=== PATIENT | male | born 1935 | race Caucasian/White ===

== ENCOUNTER 2018-07-12 11:33 | Emergency (ER) | payer MEDICARE, OTHER ==
--- NOTE | 2018-07-12 11:57 | EDM.PDOC ---
ED HPI GENERAL MEDICAL PROBLEM - General Chief Complaint: Syncope Stated Complaint: passed out after cardiac rehab Time Seen by Provider: 07/12/18 11:45 Source of Information: Reports: Patient, RN Notes Reviewed History Limitations: Reports: No Limitations - History of Present Illness INITIAL COMMENTS - FREE TEXT/NARRATIVE: Dave arrives at the [facility] ED following a 45 sec episode of syncope upon completion of Cardiac Rehab. He was sat down and head lowered when he became lt headed, and recovered uneventfully. He denies chest pain, SOB, GI upset, weakness, or neuologic deficit. An ekg noted NSR. Tracings reveal a mild bradycardia after exercise that recovered quickly. He is post op stenting x [address] [facility] June 07. Onset: Today - Related Data Allergies Allergy/AdvReac Type Severity Reaction Status Date / Time No Known Allergies Allergy Verified 07/12/18 12:31 Home Meds: Home Meds Clopidogrel Bisulfate [Clopidogrel] 75 mg PO BEDTIME 07/12/18 [History] Polyethylene Glycol 3350 [MiraLAX] 17 gm PO DAILY 07/12/18 [History] Simvastatin [Zocor] 40 mg PO BEDTIME 07/12/18 [History] Terazosin [Hytrin] 1 mg PO BEDTIME 07/12/18 [History] Past Medical History Cardiovascular History: Reports: CAD, High Cholesterol, Stents (June 07, 2018) ED ROS GENERAL - Review of Systems Review Of Systems: See Below Constitutional: Reports: No Symptoms HEENT: Reports: No Symptoms Respiratory: Reports: No Symptoms Cardiovascular: Reports: Lightheadedness, Syncope Endocrine: Reports: No Symptoms GI/Abdominal: Reports: No Symptoms : Reports: No Symptoms Musculoskeletal: Reports: No Symptoms Skin: Reports: No Symptoms Neurological: Reports: Dizziness, Syncope Psychiatric: Reports: No Symptoms Hematologic/Lymphatic: Reports: No Symptoms Immunologic: Reports: No Symptoms - Physical Exam Exam: See Below Exam Limited By: No Limitations General Appearance: Alert, WD/WN, No Apparent Distress Eye Exam: Bilateral Eye: EOMI, Normal Inspection, PERRL Ears: Normal External Exam Nose: Normal Inspection Throat/Mouth: Normal Inspection, Normal Oropharynx, No Airway Compromise Head Exam: Normocephalic Neck: Normal Inspection, Supple Respiratory/Chest: No Respiratory Distress, Lungs Clear, Normal Breath Sounds, No Accessory Muscle Use, Chest Non-Tender Cardiovascular: Normal Peripheral Pulses, Regular Rate, Rhythm, No Edema, No Gallop, No JVD, No Murmur, No Rub GI/Abdominal: Normal Bowel Sounds, Soft, Non-Tender, No Organomegaly, No Distention, No Mass (Male) Exam: Deferred Rectal (Males) Exam: Deferred Neuro Exam (Abbreviated): Alert, Oriented, CN II-XII Intact, Normal Cognition, Normal Gait, No Motor/Sensory Deficits Back Exam: Normal Inspection Extremities: Normal Inspection Psychiatric: Normal Affect, Normal Mood Skin Exam: Warm, Dry, Intact Course - Vital Signs Text/Narrative:: Dave remained stable at the [facility] ED. Screening labs were baseline. There was no drop in BP with standing observed, and VR increased to 85 bpm during orthostatic evaluation. His spouse will drive him home. Last Recorded V/S: Last Vital Signs Temp 36.2 C 07/12/18 11:33 Pulse 75 07/12/18 12:13 Resp 18 07/12/18 12:13 BP 105/57 L 07/12/18 12:13 Pulse Ox 94 L 07/12/18 12:13 - Orders/Labs/Meds Orders: Active Orders 24 hr Category Date Time Status EKG 12 Lead [EK] Routine Ther 07/12/18 11:53 Ordered Labs: Laboratory Tests 07/12/18 07/12/18 07/12/18 Range/Units 12:05 12:05 12:05 WBC 5.3 (4.5-12.0) X10-3/uL RBC 4.28 L (4.30-5.75) x10(6)uL Hgb 11.8 (11.5-15.5) g/dL Hct 36.0 (30.0-51.3) % MCV 84.0 (80-96) fL MCH 27.6 L (27.7-33.6) pg MCHC 32.9 (32.2-35.4) g/dL RDW 18.5 H (11.5-15.5) % Plt Count 216 (125-369) X10(3)uL MPV 7.0 L (7.4-10.4) fL Neut % (Auto) 55.4 (46-82) % Lymph % (Auto) 32.0 (13-37) % Stephenson % (Auto) 8.5 (4-12) % Eos % (Auto) 3 (1.0-5.0) % Baso % (Auto) 1 (0-2) % Neut # (Auto) 2.8 (1.6-8.3) # Lymph # (Auto) 1.7 (0.6-5.0) # Stephenson # (Auto) 0.5 (0.0-1.3) # Eos # (Auto) 0.2 (0.0-0.8) # Baso # (Auto) 0.1 (0.0-0.2) # Sodium 137 (135-145) mmol/L Potassium 4.0 (3.5-5.3) mmol/L Chloride 104 (100-110) mmol/L Carbon Dioxide 22 (21-32) mmol/L BUN 25 H (7-18) mg/dL Creatinine 1.0 (0.70-1.30) mg/dL Est Cr Clr Drug Dosing TNP Estimated GFR (MDRD) > 60 (>60) BUN/Creatinine Ratio 25.0 H (9-20) Glucose 107 (80-116) mg/dL Calcium 8.6 (8.6-10.2) mg/dL Troponin I < 0.017 L (<0.017-0.056) ng/mL Departure - Departure Time of Disposition: 12:46 Disposition: Home, Self-Care 01 Condition: Good Clinical Impression: Syncope Qualifiers: Syncope type: unspecified Qualified Code(s): R55 - Syncope and collapse - Discharge Information *PRESCRIPTION DRUG MONITORING PROGRAM REVIEWED*: Not Applicable *COPY OF PRESCRIPTION DRUG MONITORING REPORT IN PATIENT MICHAEL: Not Applicable Referrals: Abran Vasquez MD [Primary Care Provider] - Forms: ED Department Discharge - Problem List & Annotations (1) Syncope SNOMED Code(s): 124177090 Code(s): R55 - SYNCOPE AND COLLAPSE Status: Acute Current Visit: Yes Annotation/Comment:: I suggested no bike riding today. He may resume usual activity tomorrow. No change in meds. Qualifiers: Syncope type: unspecified Qualified Code(s): R55 - Syncope and collapse - Problem List Review Problem List Initiated/Reviewed/Updated: Yes - My Orders Last 24 Hours: My Active Orders 07/12/18 11:53 EKG 12 Lead [EK] Routine - Assessment/Plan Last 24 Hours: My Active Orders 07/12/18 11:53 EKG 12 Lead [EK] Routine Plan: Follow up with PCP if needed.
== END 2018-07-12 12:53 | disposition home or self-care (01) ==
LOC: FB.ED 11:33
DX: R55 Syncope and collapse (principal); Z79.899 Other long term (current) drug therapy
CPT/HCPCS: 36415; 80048; 84484; 85025; 93005; 99284

== ENCOUNTER 2023-05-21 08:59 | Emergency (ER) | payer MEDICARE ==
[2023-05-21] MEDS ORDERED: predniSONE 20 MG Tab PO ONE (09:26)
== END 2023-05-21 09:45 | disposition home or self-care (01) ==
LOC: FB.ED 08:59
DX: T78.3XXA Angioneurotic edema, initial encounter (principal); I25.10 Atherosclerotic heart disease of native coronary artery without angina pectoris; E78.00 Pure hypercholesterolemia, unspecified; Z79.899 Other long term (current) drug therapy; Z79.02 Long term (current) use of antithrombotics/antiplatelets
CPT/HCPCS: 99283; J7512

== ENCOUNTER 2023-05-25 07:51 | Emergency (ER) | payer MEDICARE ==
[2023-05-25] MEDS ORDERED: Sodium Chloride 0.9% 10 ML Syringe FLUSH PRN (08:40)
[2023-05-25] MEDS ORDERED: EPINEPHrine 1 MG/ML SDV IM ONE (08:41)
[2023-05-25] MEDS ORDERED: Sodium Chloride 0.9% 1,000 ML IV SCH (08:45)
[2023-05-25 09:05] LABS: BASOPHILS ABSOLUTE AUTO 0.1 x10-3/uL (0.0-0.3); BASOPHILS PERCENT AUTO 0.8 % (0.3-3.8); EOSINOPHILS ABSOLUTE AUTO 0.1 x10-3/uL (0.0-0.6); HEMATOCRIT 37.9 % (38.3-50.1); HEMOGLOBIN 12.5 g/dL (12.9-17.7); LYMPHOCYTES ABSOLUTE AUTO 1.5 x10-3/uL (0.5-4.5); LYMPHOCYTES PERCENT AUTO 23.9 % (15.8-45.3); MEAN CORPUSCULAR HEMOGLOBIN 32.7 pg (27.0-33.3); MEAN CORPUSCULAR VOLUME 99.1 fL (80.8-98.7); MEAN PLATELET VOLUME 7.2 fL (6.7-11.0); MONOCYTES ABSOLUTE AUTO 0.6 x10-3/uL (0.0-1.2); MONOCYTES PERCENT AUTO 8.9 % (5.5-15.2); NEUTROPHILS ABSOLUTE AUTO 4.1 x10-3/uL (1.7-6.9); NEUTROPHILS PERCENT AUTO 64.4 % (40.3-71.8); PLATELET COUNT,PLT 222 x10(3)uL (117-477); RED BLOOD CELL COUNT 3.82 x10(6)uL (3.90-5.90); RED CELL DISTRIBUTION WIDTH 14.4 % (12.4-15.0); WHITE BLOOD CELL COUNT,WBC 6.4 x10-3/uL (3.2-10.1)
[2023-05-25 09:10] LABS: BLOOD UREA NITROGEN,BUN 31 mg/dL (7-18); CALCIUM 8.8 mg/dL (8.6-10.2); CARBON DIOXIDE,CO2 27 mmol/L (21-32); CHLORIDE,CL 100 mmol/L (100-110); EST CRCL DRUG DOSING (CG) 51.06 mL/min; ESTIMATED GFR 72 mL/min (>60); GLUCOSE RANDOM 112 mg/dL (80-116); POTASSIUM,K 4.2 mmol/L (3.5-5.3); SODIUM,NA 136 mmol/L (135-145)
[2023-05-25 09:15] LABS: A/G RATIO 0.8; ALANINE AMINOTRANSFERASE,ALT 29 U/L (12-36); ALBUMIN 3.1 g/dL (3.2-4.6); ALKALINE PHOSPHATASE 74 IU/L (56-112); ASPARTATE AMNIOTRANSFERASE,AST 18 IU/L (5-25); BILIRUBIN TOTAL 0.5 mg/dL (0.1-1.3); PROTEIN TOTAL,TP 6.8 g/dL (6.0-8.0)
[2023-05-25] MEDS ORDERED: Cetirizine 10 MG Tab PO ONE (09:19)
[2023-05-25] MEDS ORDERED: Iopamidol 755 Mg/ML 100 ML Bottle IV ONE (09:45)
[2023-05-26 08:12] LABS: COMPLEMENT C3, SERUM 154 mg/dL (82-167); COMPLEMENT C4, SERUM 38 mg/dL (12-38)
== END 2023-05-25 11:30 | disposition home or self-care (01) ==
LOC: FB.ED 07:51
DX: T78.3XXA Angioneurotic edema, initial encounter (principal); I25.10 Atherosclerotic heart disease of native coronary artery without angina pectoris; E78.00 Pure hypercholesterolemia, unspecified; Z79.899 Other long term (current) drug therapy
CPT/HCPCS: 36415; 74177; 80053; 82785; 85025; 86140; 86160; 86161; 86628; 96360; 96361; 96372; 99284; A9270; J0171; J7030; Q9967

== ENCOUNTER 2023-08-17 12:23 | Inpatient (IN) | payer MEDICARE ==
[2023-08-17 13:03] LABS: BASOPHILS PERCENT AUTO 0.4 % (0.3-3.8); EOSINOPHILS ABSOLUTE AUTO 0.1 x10-3/uL (0.0-0.6); EOSINOPHILS PERCENT AUTO 1.3 % (0.1-6.8); HEMATOCRIT 28.2 % (38.3-50.1); HEMOGLOBIN 9.4 g/dL (12.9-17.7); LYMPHOCYTES ABSOLUTE AUTO 1.9 x10-3/uL (0.5-4.5); LYMPHOCYTES PERCENT AUTO 21.8 % (15.8-45.3); MEAN CORPUSCULAR HEMOGLOBIN 30.8 pg (27.0-33.3); MEAN CORPUSCULAR HGB CONC 33.4 g/dL (28.7-35.3); MEAN CORPUSCULAR VOLUME 92.3 fL (80.8-98.7); MONOCYTES ABSOLUTE AUTO 0.9 x10-3/uL (0.0-1.2); MONOCYTES PERCENT AUTO 9.8 % (5.5-15.2); NEUTROPHILS ABSOLUTE AUTO 5.9 x10-3/uL (1.7-6.9); NEUTROPHILS PERCENT AUTO 66.7 % (40.3-71.8); PLATELET COUNT,PLT 379 x10(3)uL (117-477); RED BLOOD CELL COUNT 3.06 x10(6)uL (3.90-5.90); WHITE BLOOD CELL COUNT,WBC 8.9 x10-3/uL (3.2-10.1)
[2023-08-17 13:07] LABS: BASE EXCESS VENOUS,POC -1 mmol/L (-2 - 3+); PCO2 VENOUS,POC 26 mmHg (41-51); PH VENOUS,POC 7.51 pH Units (7.32-7.43)
[2023-08-17 13:19] LABS: INR 1.07 (1.00-1.24)
[2023-08-17 13:24] LABS: TROPONIN I 11.3 pg/mL (4.0-60.3)
[2023-08-17 13:31] LABS: A/G RATIO 0.5; ALANINE AMINOTRANSFERASE,ALT 43 U/L (12-36); ALBUMIN 2.3 g/dL (3.2-4.6); ALKALINE PHOSPHATASE 118 IU/L (56-112); ASPARTATE AMNIOTRANSFERASE,AST 49 IU/L (5-25); BILIRUBIN TOTAL 0.6 mg/dL (0.1-1.3); BLOOD UREA NITROGEN,BUN 20 mg/dL (7-18); BUN/CREATININE RATIO 18.2 (9-20); CALCIUM 8.9 mg/dL (8.6-10.2); CARBON DIOXIDE,CO2 22 mmol/L (21-32); CHLORIDE,CL 96 mmol/L (100-110); CREATININE 1.1 mg/dL (0.70-1.30); ESTIMATED GFR 65 mL/min (>60); GLUCOSE RANDOM 135 mg/dL (80-116); POTASSIUM,K 3.9 mmol/L (3.5-5.3); PROTEIN TOTAL,TP 7.2 g/dL (6.0-8.0); SODIUM,NA 129 mmol/L (135-145)
[2023-08-17 14:14] LABS: LACTIC ACID 1.1 mmol/L (0.4-2.0)
[2023-08-17] MEDS ORDERED: cefTRIAXone 1 GM Vial IVPUSH SCH (14:30)
[2023-08-17] MEDS ORDERED: Azithromycin 500 MG in Sodium Chloride 0.9% 250 ML IV SCH (14:30)
[2023-08-17] MEDS ORDERED: Ondansetron 4 MG/2 ML SDV IV PRN (15:00)
[2023-08-17] MEDS ORDERED: Albuterol 0.083% 2.5 MG/3 ML Neb Soln NEB PRN (15:00)
[2023-08-17] MEDS ORDERED: Sennosides/Docusate Sodium 50-8.6 MG Tab PO PRN (15:00)
[2023-08-17] MEDS ORDERED: Cyclobenzaprine 10 MG Tab PO PRN (15:10)
[2023-08-17] MEDS ORDERED: Non-Formulary Medication 1 Each (Epinephrine [Epipen] 0.3 MG/0.3 ML Pen) IM PRN (15:10)
[2023-08-17] MEDS ORDERED: DAPTOmycin 500 MG Vial IVPUSH SCH (15:15)
[2023-08-17] MEDS ORDERED: Iopamidol 755 Mg/ML 100 ML Bottle IV SCH (15:45)
[2023-08-17] MEDS: Albuterol/Ipratropium 3.0-0.5 MG/3 ML Neb Soln NEB SCH ×2 (15:54→21:26)
[2023-08-17] MEDS: Piperacillin/Tazobactam 3.375 GM in Sodium Chloride 0.9% 50 ML IV SCH ×2 (15:57→21:03)
[2023-08-17] MEDS: Enoxaparin 40 MG/0.4 ML Syringe SUBCUT SCH (16:01)
[2023-08-17] MEDS: Acetaminophen 325 MG Tab PO PRN ×2 (16:04→23:32)
[2023-08-17] MEDS: Sodium Chloride 0.9% 10 ML Syringe FLUSH PRN ×2 (17:22→21:03)
[2023-08-17] MEDS: Heparin Sodium 10 Units/ML 5 ML Syringe FLUSH PRN (17:23)
[2023-08-17] MEDS ORDERED: Rosuvastatin 20 MG Tab PO SCH (21:00)
[2023-08-17] MEDS: Terazosin 1 MG Cap PO SCH (21:06)
[2023-08-17] MEDS: traZODone 50 MG Tab PO SCH (21:06)
[2023-08-18] MEDS: Sodium Chloride 0.9% 10 ML Syringe FLUSH PRN ×6 (00:10→21:16)
[2023-08-18] MEDS: Heparin Sodium 10 Units/ML 5 ML Syringe FLUSH PRN ×6 (00:10→22:34)
[2023-08-18] MEDS: Piperacillin/Tazobactam 3.375 GM in Sodium Chloride 0.9% 50 ML IV SCH ×4 (03:08→21:17)
[2023-08-18] MEDS: Albuterol/Ipratropium 3.0-0.5 MG/3 ML Neb Soln NEB SCH ×4 (06:27→21:02)
[2023-08-18 06:30] LABS: BASOPHILS PERCENT AUTO 0.5 % (0.3-3.8); EOSINOPHILS ABSOLUTE AUTO 0.2 x10-3/uL (0.0-0.6); EOSINOPHILS PERCENT AUTO 2.4 % (0.1-6.8); HEMATOCRIT 26.9 % (38.3-50.1); HEMOGLOBIN 8.7 g/dL (12.9-17.7); LYMPHOCYTES ABSOLUTE AUTO 1.7 x10-3/uL (0.5-4.5); LYMPHOCYTES PERCENT AUTO 21.1 % (15.8-45.3); MEAN CORPUSCULAR HEMOGLOBIN 29.8 pg (27.0-33.3); MEAN CORPUSCULAR HGB CONC 32.4 g/dL (28.7-35.3); MEAN PLATELET VOLUME 7.2 fL (6.7-11.0); MONOCYTES ABSOLUTE AUTO 0.7 x10-3/uL (0.0-1.2); MONOCYTES PERCENT AUTO 9.2 % (5.5-15.2); NEUTROPHILS ABSOLUTE AUTO 5.3 x10-3/uL (1.7-6.9); NEUTROPHILS PERCENT AUTO 66.8 % (40.3-71.8); PLATELET COUNT,PLT 347 x10(3)uL (117-477); RED BLOOD CELL COUNT 2.92 x10(6)uL (3.90-5.90); RED CELL DISTRIBUTION WIDTH 17.5 % (12.4-15.0)
[2023-08-18 06:44] LABS: A/G RATIO 0.4; ALANINE AMINOTRANSFERASE,ALT 60 U/L (12-36); ALKALINE PHOSPHATASE 109 IU/L (56-112); ASPARTATE AMNIOTRANSFERASE,AST 72 IU/L (5-25); BILIRUBIN TOTAL 0.4 mg/dL (0.1-1.3); BLOOD UREA NITROGEN,BUN 19 mg/dL (7-18); BUN/CREATININE RATIO 17.3 (9-20); CALCIUM 8.6 mg/dL (8.6-10.2); CARBON DIOXIDE,CO2 24 mmol/L (21-32); CHLORIDE,CL 102 mmol/L (100-110); CREATININE 1.1 mg/dL (0.70-1.30); EST CRCL DRUG DOSING (CG) 46.42 mL/min; ESTIMATED GFR 65 mL/min (>60); GLUCOSE RANDOM 128 mg/dL (80-116); POTASSIUM,K 4.1 mmol/L (3.5-5.3); PROTEIN TOTAL,TP 6.8 g/dL (6.0-8.0); SODIUM,NA 137 mmol/L (135-145)
[2023-08-18] MEDS: DAPTOmycin 500 MG in Sodium Chloride 0.9% 50 ML IV SCH (08:17)
[2023-08-18] MEDS: Cholecalciferol (Vitamin D3) 25 MCG Tab PO SCH (09:01)
[2023-08-18] MEDS: Ezetimibe 10 MG Tab PO SCH (09:02)
[2023-08-18] MEDS: Multivitamin Tab PO SCH (09:02)
[2023-08-18] MEDS: Enoxaparin 40 MG/0.4 ML Syringe SUBCUT SCH (15:15)
[2023-08-18] MEDS: Acetaminophen 325 MG Tab PO PRN (16:23)
[2023-08-18] MEDS ORDERED: Aluminum Hydroxide/Magnesium Hydroxide Susp 30 ML Cup PO PRN (19:17)
[2023-08-18] MEDS: Terazosin 1 MG Cap PO SCH (21:03)
[2023-08-18] MEDS: traZODone 50 MG Tab PO SCH (21:07)
[2023-08-19] MEDS: Sodium Chloride 0.9% 10 ML Syringe FLUSH PRN ×8 (03:04→21:54)
[2023-08-19] MEDS: Piperacillin/Tazobactam 3.375 GM in Sodium Chloride 0.9% 50 ML IV SCH ×4 (03:05→21:18)
[2023-08-19] MEDS: Heparin Sodium 10 Units/ML 5 ML Syringe FLUSH PRN (03:45)
[2023-08-19] MEDS: Acetaminophen 325 MG Tab PO PRN ×2 (03:59→15:46)
[2023-08-19] MEDS: Albuterol/Ipratropium 3.0-0.5 MG/3 ML Neb Soln NEB SCH ×4 (06:57→21:25)
[2023-08-19] MEDS: DAPTOmycin 500 MG in Sodium Chloride 0.9% 50 ML IV SCH (07:46)
[2023-08-19] MEDS: Multivitamin Tab PO SCH (08:22)
[2023-08-19] MEDS: Ezetimibe 10 MG Tab PO SCH (08:22)
[2023-08-19] MEDS: Cholecalciferol (Vitamin D3) 25 MCG Tab PO SCH (08:22)
[2023-08-19] MEDS: Heparin Sodium 10 Units/ML 5 ML Syringe FLUSH SCH ×3 (08:59→21:55)
[2023-08-19] MEDS ORDERED: Azithromycin 250 MG Tab PO ONE (09:00)
[2023-08-19] MEDS ORDERED: Azithromycin 500 MG Tab PO ONE (09:00)
[2023-08-19] MEDS: Enoxaparin 40 MG/0.4 ML Syringe SUBCUT SCH (15:19)
[2023-08-19] MEDS: Terazosin 1 MG Cap PO SCH (21:31)
[2023-08-19] MEDS: traZODone 50 MG Tab PO SCH (21:31)
[2023-08-20] MEDS: Piperacillin/Tazobactam 3.375 GM in Sodium Chloride 0.9% 50 ML IV SCH ×4 (03:26→20:55)
[2023-08-20] MEDS: Sodium Chloride 0.9% 10 ML Syringe FLUSH PRN ×5 (03:30→21:30)
[2023-08-20] MEDS: Heparin Sodium 10 Units/ML 5 ML Syringe FLUSH SCH ×4 (04:22→21:31)
[2023-08-20] MEDS: Albuterol/Ipratropium 3.0-0.5 MG/3 ML Neb Soln NEB SCH ×4 (06:22→20:39)
[2023-08-20] MEDS: DAPTOmycin 500 MG in Sodium Chloride 0.9% 50 ML IV SCH (08:12)
[2023-08-20] MEDS: Ezetimibe 10 MG Tab PO SCH (08:17)
[2023-08-20] MEDS: Cholecalciferol (Vitamin D3) 25 MCG Tab PO SCH (08:17)
[2023-08-20] MEDS: Multivitamin Tab PO SCH (08:17)
[2023-08-20] MEDS: Azithromycin 250 MG Tab PO SCH (08:17)
[2023-08-20] MEDS ORDERED: Alteplase 2 MG Vial IV ONE (09:00)
[2023-08-20 11:00] LABS: BASOPHILS PERCENT AUTO 0.4 % (0.3-3.8); EOSINOPHILS ABSOLUTE AUTO 0.6 x10-3/uL (0.0-0.6); EOSINOPHILS PERCENT AUTO 5.4 % (0.1-6.8); HEMATOCRIT 27.5 % (38.3-50.1); LYMPHOCYTES ABSOLUTE AUTO 2.1 x10-3/uL (0.5-4.5); LYMPHOCYTES PERCENT AUTO 19.4 % (15.8-45.3); MEAN CORPUSCULAR HEMOGLOBIN 30.1 pg (27.0-33.3); MEAN CORPUSCULAR HGB CONC 32.7 g/dL (28.7-35.3); MEAN PLATELET VOLUME 7.4 fL (6.7-11.0); MONOCYTES ABSOLUTE AUTO 0.6 x10-3/uL (0.0-1.2); MONOCYTES PERCENT AUTO 5.9 % (5.5-15.2); NEUTROPHILS ABSOLUTE AUTO 7.5 x10-3/uL (1.7-6.9); NEUTROPHILS PERCENT AUTO 68.9 % (40.3-71.8); PLATELET COUNT,PLT 447 x10(3)uL (117-477); RED BLOOD CELL COUNT 2.99 x10(6)uL (3.90-5.90); RED CELL DISTRIBUTION WIDTH 17.7 % (12.4-15.0); WHITE BLOOD CELL COUNT,WBC 10.8 x10-3/uL (3.2-10.1)
[2023-08-20 11:10] LABS: A/G RATIO 0.4; ALANINE AMINOTRANSFERASE,ALT 50 U/L (12-36); ALKALINE PHOSPHATASE 131 IU/L (56-112); ASPARTATE AMNIOTRANSFERASE,AST 44 IU/L (5-25); BILIRUBIN TOTAL 0.5 mg/dL (0.1-1.3); BLOOD UREA NITROGEN,BUN 14 mg/dL (7-18); BUN/CREATININE RATIO 10.8 (9-20); CALCIUM 8.8 mg/dL (8.6-10.2); CARBON DIOXIDE,CO2 22 mmol/L (21-32); CHLORIDE,CL 98 mmol/L (100-110); CREATININE 1.3 mg/dL (0.70-1.30); EST CRCL DRUG DOSING (CG) 39.28 mL/min; ESTIMATED GFR 53 mL/min (>60); GLUCOSE RANDOM 108 mg/dL (80-116); POTASSIUM,K 3.9 mmol/L (3.5-5.3); PROTEIN TOTAL,TP 7.4 g/dL (6.0-8.0); SODIUM,NA 133 mmol/L (135-145)
[2023-08-20] MEDS: Enoxaparin 40 MG/0.4 ML Syringe SUBCUT SCH (15:39)
[2023-08-20] MEDS: traZODone 50 MG Tab PO SCH (20:39)
[2023-08-20] MEDS: Terazosin 1 MG Cap PO SCH (20:39)
[2023-08-21] MEDS: Piperacillin/Tazobactam 3.375 GM in Sodium Chloride 0.9% 50 ML IV SCH ×2 (03:04→09:51)
[2023-08-21] MEDS: Sodium Chloride 0.9% 10 ML Syringe FLUSH PRN ×4 (03:46→10:36)
[2023-08-21] MEDS: Heparin Sodium 10 Units/ML 5 ML Syringe FLUSH SCH ×2 (03:47→08:40)
[2023-08-21] MEDS: Albuterol/Ipratropium 3.0-0.5 MG/3 ML Neb Soln NEB SCH (06:30)
[2023-08-21] MEDS: DAPTOmycin 500 MG in Sodium Chloride 0.9% 50 ML IV SCH (08:05)
[2023-08-21 08:48] LABS: BASOPHILS PERCENT AUTO 0.3 % (0.3-3.8); EOSINOPHILS ABSOLUTE AUTO 0.5 x10-3/uL (0.0-0.6); EOSINOPHILS PERCENT AUTO 5.4 % (0.1-6.8); HEMATOCRIT 26.8 % (38.3-50.1); HEMOGLOBIN 8.8 g/dL (12.9-17.7); LYMPHOCYTES ABSOLUTE AUTO 1.7 x10-3/uL (0.5-4.5); LYMPHOCYTES PERCENT AUTO 16.8 % (15.8-45.3); MEAN CORPUSCULAR HEMOGLOBIN 30.1 pg (27.0-33.3); MEAN CORPUSCULAR HGB CONC 32.7 g/dL (28.7-35.3); MEAN CORPUSCULAR VOLUME 91.9 fL (80.8-98.7); MEAN PLATELET VOLUME 7.6 fL (6.7-11.0); MONOCYTES ABSOLUTE AUTO 0.6 x10-3/uL (0.0-1.2); MONOCYTES PERCENT AUTO 5.8 % (5.5-15.2); NEUTROPHILS ABSOLUTE AUTO 7.1 x10-3/uL (1.7-6.9); NEUTROPHILS PERCENT AUTO 71.7 % (40.3-71.8); PLATELET COUNT,PLT 423 x10(3)uL (117-477); RED BLOOD CELL COUNT 2.92 x10(6)uL (3.90-5.90); RED CELL DISTRIBUTION WIDTH 18.1 % (12.4-15.0)
[2023-08-21 08:59] LABS: A/G RATIO 0.4; ALANINE AMINOTRANSFERASE,ALT 62 U/L (12-36); ALKALINE PHOSPHATASE 135 IU/L (56-112); ASPARTATE AMNIOTRANSFERASE,AST 56 IU/L (5-25); BILIRUBIN TOTAL 0.5 mg/dL (0.1-1.3); BLOOD UREA NITROGEN,BUN 14 mg/dL (7-18); BUN/CREATININE RATIO 10.8 (9-20); CALCIUM 8.7 mg/dL (8.6-10.2); CARBON DIOXIDE,CO2 21 mmol/L (21-32); CHLORIDE,CL 100 mmol/L (100-110); CREATINE KINASE,CK 61 IU/L (60-160); CREATININE 1.3 mg/dL (0.70-1.30); EST CRCL DRUG DOSING (CG) 39.28 mL/min; ESTIMATED GFR 53 mL/min (>60); GLUCOSE RANDOM 146 mg/dL (80-116); POTASSIUM,K 3.6 mmol/L (3.5-5.3); PROTEIN TOTAL,TP 7.3 g/dL (6.0-8.0); SODIUM,NA 135 mmol/L (135-145)
[2023-08-21] MEDS: Cholecalciferol (Vitamin D3) 25 MCG Tab PO SCH (09:46)
[2023-08-21] MEDS: Ezetimibe 10 MG Tab PO SCH (09:46)
[2023-08-21] MEDS: Azithromycin 250 MG Tab PO SCH (09:46)
[2023-08-21] MEDS: Multivitamin Tab PO SCH (09:46)
[2023-08-21] MEDS ORDERED: FLU (Fluad Quad) 2023-24(65UP)/MF59C/PF 60 MCG/0.5 ML Syringe IM ONE (10:00)
[2023-08-21] MEDS: Heparin Sodium 10 Units/ML 5 ML Syringe FLUSH PRN (10:35)
== END 2023-08-21 10:53 | disposition home or self-care (01) | DRG 194 ==
LOC: FB.ED 12:23 → FB.MS 15:00
PROVIDERS: ADMIT Emergency Medicine; ATTEND Family Medicine
DX: J18.9 Pneumonia, unspecified organism (principal); M00.9 Pyogenic arthritis, unspecified; T81.40XA Infection following a procedure, unspecified, initial encounter; I25.10 Atherosclerotic heart disease of native coronary artery without angina pectoris; R63.0 Anorexia; Z51.5 Encounter for palliative care; E78.00 Pure hypercholesterolemia, unspecified; K21.9 Gastro-esophageal reflux disease without esophagitis; E78.5 Hyperlipidemia, unspecified; Z96.659 Presence of unspecified artificial knee joint; Z79.82 Long term (current) use of aspirin; Z88.1 Allergy status to other antibiotic agents; Z98.890 Other specified postprocedural states; Z79.899 Other long term (current) drug therapy; Z95.5 Presence of coronary angioplasty implant and graft; Z87.891 Personal history of nicotine dependence; Z68.29 Body mass index [BMI] 29.0-29.9, adult; Y83.8 Other surgical procedures as the cause of abnormal reaction of the patient, or of later complication, without mention of misadventure at the time of the procedure
CPT/HCPCS: 36415; 71045; 71260; 71275; 80053; 82550; 83605; 83880; 84484; 85025; 85379; 85610; 85730; 87040; 90694; 93005; 93010; 94150; 94640; 97110-GO; 97161-GP; 97165-GO; 97535-GO; 99222; 99232; 99238; 99285; A9270-GY; G0008; J0878; J1642; J1650; J2543; J2997; J3490; J7620; Q9967

== ENCOUNTER 2024-05-24 06:46 | Day surgery (SDC) | payer MEDICARE ==
[~2024-05-24 06:46] MED LIST: Sodium Chloride 0.9% 10 ML Syringe FLUSH PRN
[2024-05-24] MEDS ORDERED: Midazolam 1 MG/ML 2 ML SDV IV ONE (06:47)
[2024-05-24] MEDS ORDERED: fentaNYL 100 MCG/2 ML SDV IV ONE (06:47)
[2024-05-24] MEDS: Lactated Ringers 1,000 ML IV PRN (07:33)
[2024-05-24] MEDS: acetaZOLAMIDE 500 MG Cap.ER PO ONE (08:45)
== END 2024-05-24 08:53 | disposition home or self-care (01) ==
LOC: FB.SDS 06:46
PROVIDERS: ATTEND Ophthalmology
DX: H26.9 Unspecified cataract (principal); H21.81 Floppy iris syndrome; N40.1 Benign prostatic hyperplasia with lower urinary tract symptoms; R35.1 Nocturia; I25.10 Atherosclerotic heart disease of native coronary artery without angina pectoris; E78.00 Pure hypercholesterolemia, unspecified; Z79.82 Long term (current) use of aspirin; Z79.899 Other long term (current) drug therapy
CPT/HCPCS: 00142; 66984; 99100; A9270; J2250; J3010; J7120; V2632

== ENCOUNTER 2024-06-07 06:59 | Day surgery (SDC) | payer MEDICARE ==
[2024-06-07] MEDS ORDERED: fentaNYL 100 MCG/2 ML SDV IV ONE (07:00)
[2024-06-07] MEDS ORDERED: Lactated Ringers 1,000 ML IV PRN (07:00)
[2024-06-07] MEDS ORDERED: Midazolam 1 MG/ML 2 ML SDV IV ONE (07:00)
[2024-06-07] MEDS ORDERED: Sodium Chloride 0.9% 10 ML Syringe IV ONE (07:00)
[2024-06-07] MEDS: acetaZOLAMIDE 500 MG Cap.ER PO ONE (08:42)
[2024-06-07] MEDS: Sodium Chloride 0.9% 10 ML Syringe FLUSH PRN (10:16)
== END 2024-06-07 09:15 | disposition home or self-care (01) ==
LOC: FB.SDS 06:59
PROVIDERS: ATTEND Ophthalmology
DX: H26.9 Unspecified cataract (principal); H21.81 Floppy iris syndrome; I25.10 Atherosclerotic heart disease of native coronary artery without angina pectoris; E78.00 Pure hypercholesterolemia, unspecified; N40.1 Benign prostatic hyperplasia with lower urinary tract symptoms; Z79.899 Other long term (current) drug therapy
CPT/HCPCS: 00142; 99100; A9270-GY; J2250; J3010; J3490; V2632